=== PATIENT | female | born 1985 | race Two or more races ===

== ENCOUNTER 2021-11-21 13:25 | Emergency (ER) | payer MEDICAID ==
[~2021-11-21] VITALS: Ht 157.5 cm; Wt 69.3 kg
[2021-11-21 14:19] VITALS: BP 121/78
== END 2021-11-21 17:02 | disposition left against medical advice (07) ==
LOC: ER 13:25
DX: O21.8 Other vomiting complicating pregnancy (principal); Z76.0 Encounter for issue of repeat prescription; Z3A.12 12 weeks gestation of pregnancy; Z53.21 Procedure and treatment not carried out due to patient leaving prior to being seen by health care provider